=== PATIENT | female | born 2005 | race Caucasian/White ===

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

== ENCOUNTER 2025-02-21 18:12 | Emergency (ER) | payer OTHER, SELFPAY ==
--- NOTE | ~2025-02-21 | CT_ITS ---
CLINICAL INDICATION: Right-sided abdominal pain COMPARISON: None. TECHNIQUE: Multiple contiguous axial images of the abdomen and pelvis were performed without the admi nistration of intravenous contrast The dose-length product (DLP) was 327.07 mGy-cm. Automated exposure control and iterative reconstruction technique were employed. FINDINGS/OBSERVATIONS: Visualized lower thorax: The bilateral lung bases are clear. The heart is of normal size, without pericardial effusion. Liver: The liver demonstrates homogeneous attenuation and is not enlarged. Gallbladder and biliary system: The gallbladder is decompressed, and otherwise unremarkable. Pancreas: Limited evaluation of the pancreas secondary to the lack of intravenous contrast. Spleen: The spleen demonstrates homogeneous attenuation and is not enlarged. Kidneys: The bilateral kidneys are unremarkable, without hydronephrosis or renal calculi. Adrenal glands: Unremarkable. Gastrointestinal tract: Fecal stasis within the colon. Appendix: The air-filled appendix is of normal caliber (axial series, images 123 through 133) Vasculature: Unremarkable. Lymph nodes: Limited evaluation without intravenous contrast or Pelvic structures: The bladder is decompressed, and otherwise unremarkable. The uterus is anteverted and anteflexed, and contains an IUD. Body wall and musculoskeletal: Small fat-containing umbilical hernia. No significant degenerative disease within the lower thoracic or lumbosacral spine. IMPRESSION: No acute pathology within the abdomen or pelvis, as detailed above Reviewed, dictated and finalized at location A.
--- OUTSIDE RECORDS SUMMARY | 2025-02-21 18:15 | XMS_ITS | Referral Summary ---
Author Organization [address] Address [address] [place] [id number] Care Team Providers Care Digital Producer Name Role Phone Toño Perdue MD Primary Care Provider [phone] Encounters Date Type Department Care Team Description 02/21/2025 4:30 PM CDT Office Visit [facility] at [address] [id number] Batool Xie NP Acute cystitis with hematuria (Primary Dx); Right lower quadrant abdominal pain; Right lower quadrant abdominal tenderness, rebound tenderness presence not specified from Last 3 Months Allergies No known active allergies Medications cloNIDine (CATAPRES) 0.1 mg tablet Take 1 tablet (0.1 mg total) by mouth nightly 4 Active fludrocortisone 0.1 mg tablet TAKE 1 TABLET BY MOUTH EVERY DAY FOR 30 DAYS 4 Active FLUoxetine 10 mg tablet/capsule TAKE 1 CAPSULE BY MOUTH ONCE DAILY TAKE FOR A TOTAL OF 30 MG DAILY 0 Active ondansetron (ZOFRAN) 4 mg tablet Take 1 tablet (4 mg total) by mouth every 4 (four) hours as needed 4 Active benzonatate (TESSALON) 100 mg capsuleIndicatio ns:Cough Take 1 capsule (100 mg total) by mouth 3 (three) times a day as needed for cough 42 capsule 4 Active Additional Information Patient not taking.Reported on 02/21/2025 methylphenidate ER (METADATE ER) 20 mg CR tablet Take 1 tablet (20 mg total) by mouth every morning 4 Active nitrofurantoin monohydrate (MACROBID) 100 mg capsule Take 1 capsule (100 mg total) by mouth 2 (two) times a day for 5 days Take with food 10 capsule 02/27/20 25 Active Active Problems No known active problems Social History Tobacco Use Types Packs/Day Years Used Date Smoking Tobacco: Never Assessed Comments Unknown Sex and Gender Information Value Date Recorded Sex Assigned at Not on file Legal Sex Female 11:11 AM CDT Gender Identity Not on file Sexual Orientation Not on file Last Filed Vital Signs Vital Sign Reading Time Taken Comments Blood Pressure 106/67 02/21/2025 4:41 PM CDT Pulse 85 02/21/2025 4:41 PM CDT Temperature 37 C (98.6 F) 02/21/2025 4:41 PM CDT Respiratory Rate 21 02/21/2025 4:41 PM CDT Oxygen Saturation 100% 02/21/2025 4:41 PM CDT Inhaled Oxygen Concentration - - Weight 69.4 kg (153 lb 1.6 oz) 02/21/2025 4:41 P M CDT Height 167.6 cm (5' 5.98 ) 10/11/2024 2:19 PM CS T Body Mass Index 24.72 10/11/2024 2:19 PM 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 Plan of Treatment Not on file Procedures Procedure Name Priority Date/Time Associated Diagnosis Comments POCT HCG, URINE Routine 02/21/2025 4:57 PM CDT Acute cystitis with hematuria POCT URINALYSIS DIPSTICK Routine 02/21/2025 4:47 PM CDT Acute cystitis with hematuria from Last 3 Months Results * POCT hCG, urine (02/21/2025 4:57 PM CDT) HCG, ur, POC Negative Negative Lot Number [id number] QC Backgroud Clear Acceptable QC Control Line Acceptable Urine 02/21/2025 4:57 PM CDT Batool Xie NP POINT OF CARE TEST ORDERABLES F inal Result * (ABNORMAL) POCT urinalysis dipstick (02/21/2025 4:47 PM CDT) Color, Urine, POC Yellow Clarity, ur, POC Cloudy(A) Clear Glucose, ur, POC Negative Negative MG/DL Bilirubin, ur, POC Negative Negative, Small, Moderate, Large Ketones, ur, POC Negative Negative Specific [place], POC 1.020 1.003 - 1.030 Blood, ur, POC Large(A) Negative pH, ur, POC 7.0 5.0 - 8.0 Protein, ur, POC 300.(A) Negative Urobilinogen, urine, POC 0.2 0.2 - 1.0 mg/dL Nitrite, ur, POC Positive(A) Negative Leukocytes, ur, POC Small(A) Negative Lot Number [id number] Urine 02/21/2025 4:47 PM CDT Batool Xie NP POINT OF CARE TEST ORDERABLES F inal Result from Last 3 Months Insurance Care Teams Digital Producer Relationship Specialty Start Date End Date Toño Perdue MD [address] [place] [address] PCP - General Internal Medicine 10/11/24
--- OUTSIDE RECORDS SUMMARY | 2025-02-21 18:15 | XMS_ITS | Data Portability ---
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 CARS questionnaires for screening. Consideration to start her on Strattera if she meets criteria. I told her that I would not do any stimulant medicines, and I am hesitant to use clonidine or guanfacine in the setting of POTS. ils lsines Not available 04/19/2024 14:20:16 05/18/2024 05/18/2024 ADHD: Clonidine 0.1 mg p.o. at night. Call me in a couple weeks and at that time we will repeat the CARS questionnaires for her. She is also asking for a form to be filled out for an emotional support animal and has that available on her phone. [email or web address] Not available 05/18/2024 12:49:14 Plan of Treatment Reminders Order Date Submit Date Provider Last Modified By Organization Details Last Modified Time Details Appointments None recorded. Lab None recorded. Referral None recorded. Procedures None recorded. Surgeries None recorded. Imaging None recorded. Medication Orders clonidine HCl 0.1 mg tablet 2023 024 [id number], [address] [place], [address], 09:41:26 Patient TargetsNo targets recorded. Patient InstructionsNo instructions recorded. Reason for Referral None Reported. Results Created Date Observation Date Name Description Value Unit Range Abnormal Flag Note LastModifiedBy Organization Detail LastModifiedTime 03/20/20 24 03/14/2024 elect musa wugr am, routi ne ECG, 12 leads min No observ ation record ed. INTERFACE Sc Only - [facility] [address] [address], [place], [address], 03/20/2024 23:14:34 10/24/20 24 US, head + neck, soft tissu e [facility] [address] [place]. [address] ------ ---NAM E----- ---- NUMBER SEX AGE ADMIT DISC. XRAY# F/C TYPE BRYAN ROMELIA [id number] F [id number] CBU O/P DATE OF : 2004 M/R# [id number] PH#: LOCATI ON: TRANSC RIBED: 13:09 US SOFT TISSUE NECK/H EAD SONOG7 6536 [address] SHALINI: [id number] {Trans portat ion: AMBULA TORY PHYSIC YONY: JAZLYN MEHTA ====== ====== ====== ====== ====== ====== ====== ====== ====== ====== ====== ====== ====== == R A D I O L O G Y R E P O R T ====== ====== ====== ====== ====== ====== ====== ====== ====== ====== ====== ====== ====== == US Thyroi d Histor y: Abnorm al thyroi d functi on test. Compar robe: No prior availa ble. Techni que: Longit udinal and transv erse images of thyroi d were obtain ed. Findin gs: The right thyroi d lobe measur es 2.1 x 1.6 x 5.2 cm. The left thyroi d lobe measur es 1.6 x 1.3 x 4.4 cm. The thyroi d isthmu s measur es 2 mm in anteri or-pos terior dimens ion. There is mild diffus e increa sed vascul arity suspic ious for thyroi ditis. No discre te thyroi d nodule . No cervic al lympha denopa thy. IMPRES NANCY: Mildly hyperv ascula r appear ance of the thyroi d gland suspic ious for thyroi ditis. No discre te thyroi d nodule . This report was dictat ed remote ly by a [facility] Radiol ogist in [place], [place]. Electr onical ly Signed By: ROSS STERLING MD , Date/T nakul: 13:09 [email or web address] [facility] Rad [address] [place], [address], 11/17/2024 15:12:30 10/24/20 24 US, head + neck, soft tissu e [facility] [address] [place]. [address] ------ ---NAM E----- ---- NUMBER SEX AGE ADMIT DISC. XRAY# F/C TYPE BRYAN ROMELIA [id number] F [id number] CBU O/P DATE OF : 2004 M/R# [id number] PH#: LOCATI ON: TRANSC RIBED: 13:09 US SOFT TISSUE NECK/H EAD SONOG7 6536 [address] SHALINI: [id number] {Trans portat ion: AMBULA TORY PHYSIC YONY: JAZLYN MEHTA ====== ====== ====== ====== ====== ====== ====== ====== ====== ====== ====== ====== ====== == R A D I O L O G Y R E P O R T ====== ====== ====== ====== ====== ====== ====== ====== ====== ====== ====== ====== ====== == US Thyroi d Histor y: Abnorm al thyroi d functi on test. Compar robe: No prior availa ble. Techni que: Longit udinal and transv erse images of thyroi d were obtain ed. Findin gs: The right thyroi d lobe measur es 2.1 x 1.6 x 5.2 cm. The left thyroi d lobe measur es 1.6 x 1.3 x 4.4 cm. The thyroi d isthmu s measur es 2 mm in anteri or-pos terior dimens ion. There is mild diffus e increa sed vascul arity suspic ious for thyroi ditis. No discre te thyroi d nodule . No cervic al lympha denopa thy. IMPRES NANCY: Mildly hyperv ascula r appear ance of the thyroi d gland suspic ious for thyroi ditis. No discre te thyroi d nodule . This report was dictat ed remote ly by a [facility] Radiol ogist in [place], [place]. Electr onical ly Signed By: ROSS STERLING MD , Date/T nakul: 13:09 [email or web address] Id Only - [facility] [address], [place], [address], 11/17/2024 15:12:30 Result Notes None recorded. Problems Name Problem SNOMED Code Status Onset Date Resolution Date Notes Provider Name and Address Organization Details Recorded Time Nausea 178084217 Active 2023 Meredith Peñaloza [facility] 4 09:54:14 Mixed anxiety and depressive disorder 672470903 Active 2023 Manisha Morley [facility] 4 08:33:46 Attention deficit hyperactivity disorder, combined type 53372304 Active 2023 Toño Cantu MD [address] [facility], [place], [address] , [facility] 4 10:55:15 Disturbance of attention 34494750 [facility] 06:10:45 Postural orthostatic tachycardia syndrome 335579070 Active 2023 [facility] 06:10:53 Problem Notes None recorded. Procedures Surgical History None recorded. Imaging Results Imaging Date Name Status LastModified by Lia hardwick Details LastModified Time 03/14/2024 electrocardi ogram, routine ECG, 12 leads min completed INTERFACE Sc Only - [facility] [address] [address], [place], [address], 03/20/2024 23:14:34 10/24/2024 US, head + neck, soft tissue completed [email or web address] [facility] Only - [facility] [address] [place], [address], 11/17/2024 15:12:30 10/24/2024 US, head + neck, soft tissue completed [email or web address] Sc Only - [facility] [address] [place], [address], 11/17/2024 15:12:30 Procedure Notes None recorded. Medical Equipment None Reported. Allergies Allergen ID Allergen Name Allergen Category Reaction Reaction Severity Criticality Documentation Date Start Date Code Code System Note Provider Name and Address Organization Details Recorded Time 435274 Product containin g penicilli n (product) medicatio n rash Not available Not available 11/29/20232012 22605 8001 SNOMED React ion: Rash; Comme nt: Ilya hardwick s: JACKS ON, LORI E 2012 11:48 AM RASH; ; Not Available Not Available Not Available 201905 Substance with sulfonami de structure and antibacte rial mechanism of action (substanc e) medicatio n rash Not available Not available 11/29/20232012 32288 8003 SNOMED React ion: Rash; Comme nt: Annot atfaraz s: YIFAN GARRETT 2012 9:16A M 3; ; Not Available Not Available Not Available Medications Name Sig Start Date Stop Date Status Note LastModified by Organization Details LastModified Time clonidine HCl 0.1 mg tablet TAKE 1 TABLET BY MOUTH EVERYDAY AT BEDTIME 2023 active Not Available Not Available Not Avai lable paroxetine 10 mg tablet TAKE 1/2 TABLET BY MOUTH AT BEDTIME 04/19 completed Not Available Not Available Not Available Zofran 4 mg tablet Take 1 tablet every 4 hours by oral route. 2023 active Not Available Not Available Not Avai lable clindamycin 1 % topical gel APPLY AND GENTLY MASSAGE INTO AFFECTED AREA(S) TWICE DAILY. 04/19 completed Not Available Not Available Not Available benzonatate 100 mg capsule TAKE 1 TO 2 CAPSULES BY MOUTH 3 TIMES A DAY NEEDED FOR COUGH FOR 5 DAYS 04/19 completed Not Available Not Available Not Available albuterol sulfate HFA 90 mcg/actuati on aerosol inhaler INHALE 1 OR 2 PUFFS EVERY 4 HOURS NEEDED FOR SHORTNESS OF BREATH/WH EEZING 05/18 completed Not Available Not Available Not Available fluticasone propionate 50 mcg/actuati on nasal spray,suspe nsion USE 2 SPRAYS IN EACH NOSTRIL EVERY DAY 04/19 completed Not Available Not Available Not Available fludrocorti sone 0.1 mg tablet Take 1 tablet every day by oral route for 30 days. 2023 active Not Available Not Available Not Avai lable amoxicillin 875 mg-potassiu m clavulanate 125 mg tablet TAKE 1 TABLET BY MOUTH TWICE A DAY FOR 7 DAYS 04/19 completed Not Available Not Available Not Available atomoxetine 18 mg capsule TAKE 1 CAPSULE BY MOUTH EVERY DAY 05/18 completed Not Available Not Available Not Available 11/20 (28) 1 mg-20 mcg (21)/75 mg (7) tablet TAKE 1 TABLET BY MOUTH EVERY DAY 04/19 completed Not Available Not Available Not Available Thermotabs 287 mg-180 mg-15 mg tablet TAKE 1 TABLET BY MOUTH TWICE A DAY active Not Available Not Available No t Available Vitals Date Recorded Body weight Heart rate Respiratory rate Oxygen saturation Oxygen saturation in Arterial blood by Pulse oximetry Systolic blood pressure Diastolic blood pressure Provider Name and Address Organization Details Last Updated DateTime 4 77084.5 2 g 83 /min 18 /min 96 % 96 % 116 mm[Hg] 70 mm[Hg] Manisha Morley [facility] 4 10:31:38 Date Recorded Body weight Oxygen saturation Oxygen saturation in Arterial blood by Pulse oximetry Heart rate Respiratory rate Systolic blood pressure Diastolic blood pressure Provider Name and Address Organization Details Last Updated DateTime 4 60403.4 8 g 99 % 99 % 77 /min 16 /min 116 mm[Hg] 72 mm[Hg] Gosia Bauer [facility] 4 10:42:15 Social History None recorded. Functional Status None recorded. Mental Status None recorded. Family History Nothing Reported. Medical History No medical history recorded. Gynecological HistoryNo gynecological history recorded. Obstetrics History GPAL:G 0 P 0 0 0 0 Past Encounters Encounter ID Performer Location Encounter Start Date Encounter Closed Date Diagnosis/Indication Diagnosis SNOMED-CT Code Diagnosis ICD10 Code Diagnosis Note [id number] MD Brad Wilson [facility] ([place]) [address] [place] [address],[address] [place] [address] 04/19/2024 10:16:06 04/19/2024 11:12:55 Disturbance of attention 92571254 R41.840 Postural o rthostatic tachycardia syndrome 703974790 G90.A [id number] MD Brad Wilson [facility] ([place]) [address] [place] [address],[address] [place] [address] 05/18/2024 10:23:43 05/18/2024 11:42:30 Attention deficit hyperactivity disorder, combined type 01578845 F90.2 Health Concerns Section Related Observation LastModified by Organization Detai ls LastModified Time None Recorded Concern Status LastModified by Organization Details LastModified Time None Recorded Advance Directives Directive None Recorded Payers Encounter Date Sequence Insurance Name Policy Number Policy Corey Covered Member ID Corey Member ID Guarantor Name 04/19/2024 1 [employer] ([facility]) Romelia Hall [id number] Romelia Hall 05/18/2024 1 [facility] [employer] ([facility]) Romelia Hall [id number] Romelia Hall Notes Date Note Type Note Provider Name and Address Organization Details Recorded Time 04/19/2024 text/html Romelia is an 18-year-old white female who comes in today for a visit. She has a history for POTS syndrome. She is doing much better on sodium chloride tablets. She has not required any knee-high stockings at this point but I will discuss that with her as well. She has a history for some anxiety and depressive symptoms, but she is doing much better, and she is following up with therapy. I think cognitive behavioral therapy rather than medications is the best way to go. She has seen a psychologist who recommended trying Qelbree, although they are hesitant to do this. They are very well informed and they have researched the medication. They really do not want to go on this particular medicine. I told them at this point that we could screen her for ADHD and see if she does have this. She said she has trouble focusing. She is a quite intelligent student and she is a good student. 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 04/20/2024 09:17:49 05/18/2024 text/html Romelia is an 18-year-old white female who comes in today for a visit. She is doing okay. She says the atomoxetine is just not working. We had started her on a low dose of Strattera at 18 mg but she does not feel it is helping as she is having a dry mouth and some nausea. She has been trying to use Biotene to help with the dry mouth. She does not feel she is depressed, has no thoughts of self-harm, does not feel anxious. She is looking forward to starting college and she wants to go into molecular cellular biology and lab research. Toño Cantu MD [address] [place] [address], [address], [facility] 05/19/2024 13:49:04 OBGyn Episode No OBEpisode recorded.
--- OUTSIDE RECORDS SUMMARY | 2025-02-21 18:15 | XMS_ITS | Clinical Summary ---
Author Organization [address] Address [address] [place] [address] Care Team Providers Care Long Lines Operator Name Role Phone Toño Perdue MD Primary Care Provider [phone] Allergies No known active allergies Medications cloNIDine [...] 5 days Take with food 10 capsule 5 02/27/20 25 Active Active Problems No known active problems Encounters Date Type Department Care Team Description 02/21/2025 4:30 PM CDT Office Visit [facility] Care at [address] [address] Batool Xie NP Acute cystitis with hematuria (Primary Dx); Right lower quadrant abdominal pain; Right lower quadrant abdominal tenderness, rebound tenderness presence not specified from Last 3 Months Social History Tobacco Use Types Packs/Day Years Used Date Smoking Tobacco: Never Assessed Comments Unknown Sex and Gender Information Value Date Recorded Sex Assigned at Not on file Legal Sex Female 11:11 AM CDT Gender Identity Not on file Sexual Orientation Not on file Obstetrics History Growth Chart Information Age Height Weight Apjnlm-cwo-cryx th Percentile BMI Percentile Head Circum Head Circum Percentile Date 19 years 69.4 kg (153 lb 1.6 oz) 2024 19 years 167.6 cm (5' 5.98 ) 74.7 kg (164 lb 9.6 oz) 86.21%* 2023 19 years 167.6 cm (5' 6 ) 77.1 kg (170 lb) 88.97%* 2023 * [facility] (Girls, 2-20 Years) Last Filed Vital Signs Vital Sign Reading [...] Body Mass Index 24.72 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/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 Plan of Treatment Health Maintenance Due Date Last Done Comments Depression Screening 2005 Hepatitis C Screening 2005 Varicella Vaccines (1 of 2 - 13+ 2-dose series) 2018 HPV Vaccines (1 - 3-dose series) 2020 Meningococcal B Vaccine (1 o f 2 - Standard) 2021 Hepatitis B Screening 2023 Regular Well Visit/Exam 18-64 2023 Covid-19 Vaccine (3 - 2023-2 5 season) 2024 12/27/2021, 11/07/2021 Influenza Vaccine (Season Ended) 2025 DTaP/Tdap/Td Vaccine (2 - Td or Tdap) 07/03/2026 07/03/2016 Meningococcal Vaccine Completed 09/29/2022 , 08/11/2016 Pneumococcal vaccine <65 Aged Out No longer eligible based on patient's age to complete this topic Procedures Procedure Name Priority Date/Time Associated Diagnosis [...] Large Ketones, ur, POC Negative Negative Specific [place], POC 1.020 1.003 - 1.030 Blood, ur, POC Large(A) Negative pH, ur, POC 7.0 5.0 - 8.0 Protein, ur, POC 300.(A) Negative Urobilinogen, urine, POC 0.2 0.2 - 1.0 mg/dL Nitrite, ur, POC Positive(A) Negative Leukocytes, ur, POC Small(A) Negative Lot Number [id number] Urine 02/21/2025 4:47 PM CDT Batool Xie NP POINT OF CARE TEST ORDERABLES F inal Result from Last 3 Months Insurance [employer] Care Teams Long Lines Operator Relationship Specialty Start Date End Date Toño Perdue MD [address] [place] [address] PCP - General Internal Medicine 10/11/24
--- OUTSIDE RECORDS SUMMARY | 2025-02-21 18:15 | XMS_ITS | Encounter Summary ---
Author Organization [facility] Healthcare Address [address] [place] [address] Care Team Providers Care Creative Services Writer Name Role Phone Toño Perdue MD Primary Care Provider [phone] Reason for Visit * Reason Comments Urinary Symptom Symptoms for a week. Frequency, urgency, and burning. Encounter Details Date Type Department Care Team (Late st Contact Info) Description 02/21/2025 4:30 PM CDT Office Visit [facility] Convenient Care at [address] [address] Batool Xie NP [address] [place] [address] [address] [place] [address] Acute cystitis with hematuria (Primary Dx); Right lower quadrant abdominal pain; Right lower quadrant abdominal tenderness, rebound tenderness presence not specified Social History Tobacco Use Types Packs/Day Years Used Date Smoking Tobacco: Never Assessed Comments Unknown Sex and Gender Information Value Date Recorded Sex Assigned at Not on file Legal Sex Female 11:11 AM CDT Gender Identity Not on file Sexual Orientation Not on file documented as of this encounter Last Filed Vital Signs Vital Sign Reading [...] oz) 02/21/2025 4:41 P M CDT Height - - Body Mass Index 24.72 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 documented in this encounter Ordered Prescriptions Prescription Sig Dispense Quantity Refills Last Filled Start Date End Date nitrofurantoin monohydrate (MACROBID) 100 mg capsule Take 1 capsule (100 mg total) by mouth 2 (two) times a day for 5 days Take with food 10 capsule 02/21/2025 documented in this encounter Plan of Treatment Scheduled Orders Name Type Priority Associated Diagnoses Orde r Schedule Urine culture Urine, clean voided Microbiology Routine Acute cystitis with hematuria Expected: 02/21/2025, Expires: 02/21/2026 documented as of this encounter Procedures Procedure Name Priority Date/Time Associated Diagnosis Comments POCT HCG, URINE Routine 02/21/2025 4:57 PM CDT Acute cystitis with hematuria POCT URINALYSIS DIPSTICK Routine 02/21/2025 4:47 PM CDT Acute cystitis with hematuria documented in this encounter Results * POCT hCG, urine (02/21/2025 4:57 [...] Large Ketones, ur, POC Negative Negative Specific [employer] [place], POC 1.020 1.003 - 1.030 Blood, ur, POC Large(A) Negative pH, ur, POC 7.0 5.0 - 8.0 Protein, ur, POC 300.(A) Negative Urobilinogen, urine, POC 0.2 0.2 - 1.0 mg/dL Nitrite, ur, POC Positive(A) Negative Leukocytes, ur, POC Small(A) Negative Lot Number [id number] Urine 02/21/2025 4:47 PM CDT us Batool Xie NP POINT OF CARE TEST ORDERABLES F inal Result documented in this encounter Visit Diagnoses Diagnosis Acute cystitis with hematuria- Primary Right lower quadrant abdominal pain Right lower quadrant abdominal tenderness, rebound tenderness presence not specified documented in this encounter Care Teams Creative Services Writer Relationship Specialty Start Date End Date Toño Perdue MD [address] [place] [address] PCP - General Internal Medicine 10/11/24 documented as of this encounter
--- OUTSIDE RECORDS SUMMARY | 2025-02-21 18:15 | XMS_ITS | Clinical Summary ---
Author Organization [facility] Address [facility] [place] [address] Care Team Providers Care Launching Pad Mechanic Name Role Phone Judith Eisenberg MD Primary Care Provider [phone] Allergies No known active allergies Medications FLUoxetine 10 MG capsule TAKE 1 CAPSULE BY MOUTH ONCE DAILY TAKE FOR A TOTAL OF 30 MG DAILY 07/19/2020 Active Active Problems No known active problems Family History Medical History Relation Comments No Known Problems Father No Known Problems Mother Relation Status Comments Father Alive Mother Alive Social History Tobacco Use Types Packs/Day Years Used Date Smoking Tobacco: Former Smokeless Tobacco: Never Alcohol Use Standard Drinks/Week Comments Not Currently 0 (1 standard drink = 0.6 oz pur e alcohol) Comments No Sex and Gender Information Value Date Recorded Sex Assigned at Not on file 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 Gender Identity Not on file Sexual Orientation Not on file Last Filed Vital Signs Vital Sign Reading Time Taken Comments Blood Pressure 115/64 07/22/2020 12:03 PM CDT Pulse 89 07/22/2020 12:03 PM CDT Temperature 36.8 C (98.3 F) 07/22/2020 12:03 PM CDT Respiratory Rate 18 07/22/2020 12:03 PM CDT Oxygen Saturation 98% 07/22/2020 12:03 PM CDT Inhaled Oxygen Concentration - - Weight 60.1 kg (132 lb 8 oz) 07/22/2020 12:03 PM CDT Height 168.9 cm (5' 6.5 ) 07/22/2020 12:03 PM CD T Body Mass Index 21.07 07/22/2020 12:03 PM CDT Body Mass Index Percentile 62.85% 07/22/2020 12: 03 PM CDT Growth Chart: CDC (Girls, 2- 20 Years) Plan of Treatment Health Maintenance Due Date Last Done Comments Annual Physical 2008 HPV Vaccines (1 - 3-dose series) 2020 Meningococcal B Vaccine (1 o f 2 - Standard) 2021 Hepatitis C 2023 DTaP, Tdap and Td Vaccines ( 1 - Tdap) 2024 Hepatitis B Vaccines (1 of 3 - 19+ 3-dose series) 2024 COVID-19 Vaccine (1 - 2023-2 5 season) 2024 Meningococcal Vaccine Aged Out No savannah renetta eligible based on patient's age to complete this topic Pneumococcal Vaccine: Pediat rics (0 to 5 Years) and At-Risk Patients (6 to 49 Years) Aged Out No longer eligible b ased on patient's age to complete this topic RSV Immunizations Under 20 Months Aged Out No longer eligible based on patient's age to complete this topic Insurance Care Teams Launching Pad Mechanic Relationship Specialty Start Date End Date Judith Eisenberg MD [address] [place] [address] PCP - General PEDIATRICS 11/20/21
[2025-02-21 18:22] VITALS: BP 128/78; PULSE 87; RESP 16; TEMP 37.1; O2SAT 100
--- NOTE | 2025-02-21 18:30 | ED_ITS ---
HPI - Abdominal Pain General Chief Complaint: Abdominal Pain Stated Complaint: abd pain Time Seen by Provider: 02/21/25 18:17 History of Present Illness HPI narrative: 19-year-old female presents to emergency department for UTI symptoms and right- sided abdominal pain. Patient states she began having dysuria and urinary frequency 3 days ago. Last night she began having pain to the right side of her abdomen and flank. States the pain is a constant aching nature with intermittent sharp pains in the right side of her abdomen that are worse with movement. Went to urgent care today and was advised to come to the ED. she reports associated nausea but no emesis. Denies diarrhea, fever, hematuria, history of kidney stones. Denies vaginal discharge or concern for STDs. No prior abdominal surgeries. Related Data Allergies Allergy/AdvReac Type Severity Reaction Status Date / Time No Known Allergies Allergy Verified 02/21/25 18:25 Review of Systems 2 Review of Systems: All systems reviewed & are unremarkable except as noted in HPI and below PMFSH Past Medical History Medical History POTS (postural orthostatic tachycardia syndrome) Social History Social History Smoking status: Never smoker Substance use type: does not use Exam 2 Narrative: GENERAL: Well-appearing, well-nourished, and in no acute distress. HEAD: Normocephalic, atraumatic. EYES: EOMI. ENT: Nares clear, no rhinorrhea or epistaxis. Mucous membranes moist. NECK: Supple. CHEST: Clear to auscultation. No respiratory distress. HEART: Regular rate and rhythm. No murmur heard. Normal peripheral pulses. ABDOMEN: Normoactive bowel sounds. Abdomen soft with mild tenderness to the suprapubic region, right lower quadrant and right upper quadrant. No rebound or rigidity. Mild right CVA tenderness EXTREMITIES: Normal range of motion. No edema. SKIN: Warm, dry, no rash. NEURO: No focal deficits. Alert and oriented x3 Course Vital Signs Vital signs: Vital Signs Temperature 98.7 F 02/21/25 18:22 Pulse Rate 87 02/21/25 18:22 Respiratory Rate 16 02/21/25 18:22 Blood Pressure 128/78 02/21/25 18:22 Pulse Oximetry 100 02/21/25 18:22 Temperature 98.7 F 02/21/25 18:22 Pulse Rate 84 02/21/25 20:45 Respiratory Rate 16 02/21/25 20:45 Blood Pressure 116/66 02/21/25 20:45 Pulse Oximetry 99 02/21/25 20:45 MDM - Abdominal Pain MDM Narrative Medical decision making narrative: 19-year-old female presents to the emergency department for dysuria and urinary frequency for 3 days, right-sided abdominal and flank pain that started yesterday. Triage vitals are stable. She is afebrile and nontoxic appearing. Exam is significant for the above. CBC with leukocytosis of 12.2, no bandemia. Chemistries are unremarkable with a stable kidney function. UA concerning for UTI with greater than 100 red blood cells, positive nitrites, 3+ leuk esterase and 4+ bacteria. Patient also does have hematuria with 11-20 RBCs. Urine cultures pending. is negative. CT abdomen pelvis shows no acute pathology abdomen or pelvis, notably normal appendix and no obstructive uropathy. Patient updated on results. She politely declined antiemetics or pain medications. Her presentation is consistent with pyelonephritis. She was given a dose of IV Rocephin in the ED. She is tolerating p.o. intake and resting comfortably in exam bed. Feel she is safe to be discharged home with outpatient follow-up. Pt is in agreement with this. She was prescribed Macrobid by urgent care earlier today and was advised to not fill this. Cipro sent to pharmacy. Also given azo, ibuprofen and Reglan for symptomatic control. Advised close follow-up with PCP discussed strict ED return precautions. She is agreeable with the plan verbalized understanding. Discharged in stable condition. Lab Data 02/21/25 18:37 02/21/25 18:37 Labs: Lab Results 02/21/25 02/21/25 02/21/25 Range/Units 18:37 18:40 20:44 WBC 12.2 H (4.5-10.0) K/mm3 RBC 4.74 (4.2-5.4) M/mm3 Hgb 12.4 (12.0-15.0) g/dL Hct 40.0 (37.0-47.0) % MCV 84.4 (80-100) fl MCH 26.2 (26-34) pg MCHC 31.0 L (32-36) g/dl RDW 14.6 H (11.5-14.5) % Plt Count 274 (150-375) k/mm3 MPV 9.8 (7.4-10.4) fl Immature Gran % (Auto) 0.3 (0-0.5) % Neut % (Auto) 70.4 (45.5-73.1) % Lymph % (Auto) 21.1 (18.3-44.2) % [place] % (Auto) 7.0 (2.6-8.5) % Eos % (Auto) 0.8 (0-4.4) % Baso % (Auto) 0.4 (0.2-1.2) % Lymph # (Auto) 2.58 (0.9-3.2) K/mm3 [place] # (Auto) 0.9 H (0.1-0.6) K/mm3 Eos # (Auto) 0.1 (0-0.3) K/mm3 Baso # (Auto) 0.1 (0.0-0.1) K/mm3 Abs Immat Gran (auto) 0.04 H (0.00-0.031) K/mm3 Absolute Neuts (auto) 8.6 H (1.3-6.7) K/mm3 Absolute Nucleated RBC 0.000 (0.0-0.012) K/mm3 Nucleated RBC % 0.0 (0.0-0.2) % Sodium 140 (134-143) mmol/L Potassium 4.1 (3.4-5.0) mmol/L Chloride 103 (98-107) mmol/L Carbon Dioxide 25 (22-30) mmol/L Anion Gap 12 (4-12) mmol/L BUN 11 (8-21) mg/dL Creatinine 0.70 (0.7-1.0) mg/dL Estim Creat Clear Calc 104 ml/min Estimated GFR > 60 (59 - ) Glucose 88 (65-110) mg/dL Lactic Acid 0.6 L (0.7-2.0) mmol/L Calcium 9.8 (8.9-10.7) mg/dL Total Bilirubin 0.7 (0.2-1.3) mg/dL AST 28 (14-36) U/L ALT 19 (6-35) U/L Alkaline Phosphatase 81 (45-116) U/L Total Protein 8.0 (6.3-8.6) g/dL Albumin 4.9 (3.7-5.6) g/dL Lipase 81 (23-300) U/L Urine Color Yellow (Yellow) Urine Appearance Cloudy H (Clear) Urine pH 7.0 (5.0-9.0) Ur Specific [place] 1.015 (1.001-1.035) Urine Protein 1+ H (Negative) mg/dL Urine Glucose (UA) Negative (Negative) mg/dL Urine Ketones Negative (Negative) mg/dL Ur Blood (Man) 2+ H (Negative) Urine Nitrate Positive H (Negative) Urine Bilirubin Negative (Negative) Urine Urobilinogen 0.2 (<2.0) mg/dL Leukocyte Esterase Rfl 3+ H (Negative) ASHLEY/UL Urine RBC 11-20 H (0-2) /hpf Urine WBC >100 H (0-3) /hpf Ur Squamous Epith Cells None seen (Few) /hpf Urine Bacteria 4+ H /hpf Urine Casts 0-2 POC Urine HCG, Qual Negative (Negative) Imaging Data Radiologist's impression: ITS Impressions Abdomen/Pelvis CT 02/21/25 19:53 IMPRESSION: No acute pathology within the abdomen or pelvis, as detailed above Discharge Plan Discharge Clinical Impression: Pyelonephritis Patient Disposition: Home Condition: Stable Instructions: Antibiotic Form, Kidney Infection (ED) Additional Instructions: Your evaluated in the emergency department for abdominal plain and UTI symptoms. Her found have urinary tract infection which is likely affecting her kidneys called pyelonephritis. Please take ciprofloxacin which is an antibiotic as directed. Do not take the nitrofurantoin/Macrobid that was prescribed by urgent care. I have sent AZO for burning with urination and bladder spasms as well as metoclopramide as needed for nausea and vomiting. Take ibuprofen as needed for pain. Please follow-up closely with your primary care provider. Return to the emergency department if you develop a fever of 100.4 or greater, changing worsening pain, your unable to tolerate food or fluids, or other concerning symptoms. Patient Language: German Prescriptions: New ciprofloxacin HCl 500 mg tablet 500 mg PO Q12H Qty: 14 0RF phenazopyridine 200 mg tablet 200 mg PO TID Qty: 6 0RF metoclopramide HCl 10 mg tablet 10 mg PO Q6H PRN (Reason: nausea and vomiting) Qty: 7 0RF ibuprofen 800 mg tablet 800 mg PO TID PRN (Reason: pain) Qty: 20 0RF Follow-up/Referrals: PHYSICIAN NOT ON STAFF,NONSTAFF [Primary Care Provider] -
--- NOTE | 2025-02-21 18:40 | ECG_ITS ---
Test Date: 2025-02-21 18:48:29 Measurements Intervals [place] Rate: 84 P: 70 VT: 142 QRS: 87 QRSD: 86 T: 56 QT: 355 QTc: 421 Interpretive Statements SINUS RHYTHM MINIMAL Q WAVES- INFERIOR LEADS BASELINE ARTIFACT- I, II, III BORDERLINE ECG No previous ECG available for comparison Electronically Signed On 02-21-2025 20:28:09 CDT by Cisco Cortés D.O.
[2025-02-21 18:42] LABS: BEDSIDEPREGUCG Negative (Negative)
[2025-02-21 18:43] LABS: Basophils Absolute Auto 0.1 K/mm3 (0.0-0.1); Basophils Percent Auto 0.4 % (0.2-1.2); Eosinophils Absolute Auto 0.1 K/mm3 (0-0.3); Eosinophils Percent Auto 0.8 % (0-4.4); Hemoglobin 12.4 g/dL (12.0-15.0); Immature Granulocyte Absolute 0.04 K/mm3 (0.00-0.031); Immature Granulocyte Percent A 0.3 % (0-0.5); Lymphocytes Absolute Auto 2.58 K/mm3 (0.9-3.2); Lymphocytes Percent Auto 21.1 % (18.3-44.2); Mean Corpuscular Hemoglobin 26.2 pg (26-34); Mean Corpuscular Volume 84.4 fl (80-100); Mean Platelet Volume 9.8 fl (7.4-10.4); Monocytes Absolute Auto 0.9 K/mm3 (0.1-0.6); Neutrophils Absolute Auto 8.6 K/mm3 (1.3-6.7); Neutrophils Percent Auto 70.4 % (45.5-73.1); Platelet Count Result 274 k/mm3 (150-375); Red Blood Count 4.74 M/mm3 (4.2-5.4); Red Cell Distribution Width 14.6 % (11.5-14.5); White Blood Count 12.2 K/mm3 (4.5-10.0)
[2025-02-21 18:53] LABS: Alanine Aminotransferase 19 U/L (6-35); Albumin Level 4.9 g/dL (3.7-5.6); Alkaline Phosphatase 81 U/L (45-116); Anion Gap 12 mmol/L (4-12); Aspartate Amino Transferase 28 U/L (14-36); Bilirubin,Total 0.7 mg/dL (0.2-1.3); Blood Urea Nitrogen 11 mg/dL (8-21); Calcium 9.8 mg/dL (8.9-10.7); Carbon Dioxide 25 mmol/L (22-30); Chloride 103 mmol/L (98-107); Estimated CRCL calculation 104 ml/min; Estimated Glomerular Filt Rate > 60; Glucose 88 mg/dL (65-110); Lipase 81 U/L (23-300); Potassium 4.1 mmol/L (3.4-5.0); Sodium 140 mmol/L (134-143)
--- OUTSIDE RECORDS SUMMARY | 2025-02-21 19:03 | XMS_ITS | Clinical Summary ---
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
--- OUTSIDE RECORDS SUMMARY | 2025-02-21 19:03 | XMS_ITS | Encounter Summary ---
Author Organization [facility] Healthcare Address [address] [place] [address] Care Team Providers Care Knife Edger Name Role Phone Toño Perdue MD Primary Care Provider [phone] Reason for Visit * Reason Comments Urinary Symptom Symptoms for a week. Frequency, urgency, and burning. 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 documented in this encounter Ordered Prescriptions Prescription [...] Large Ketones, ur, POC Negative Negative Specific [place], POC 1.020 1.003 - 1.030 Blood, ur, POC Large(A) Negative pH, ur, POC 7.0 5.0 - 8.0 Protein, ur, POC 300.(A) Negative Urobilinogen, urine, POC 0.2 0.2 - 1.0 mg/dL Nitrite, ur, POC Positive(A) Negative Leukocytes, ur, POC Small(A) Negative Lot Number [id number] Urine 02/21/2025 4:47 PM CDT us Batool Xie NP POINT OF CARE TEST ORDERABLES F inal Result documented in this encounter Visit Diagnoses Diagnosis Acute cystitis with hematuria- Primary Right lower quadrant abdominal pain Right lower quadrant abdominal tenderness, rebound tenderness presence not specified documented in this encounter Care Teams Knife Edger Relationship Specialty Start Date End Date Toño Perdue MD [address] [place] [address] PCP - General Internal Medicine 10/11/24 documented as of this encounter
--- OUTSIDE RECORDS SUMMARY | 2025-02-21 19:03 | XMS_ITS | Referral Summary ---
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 Plan of Treatment Not on file Procedures [...] Large Ketones, ur, POC Negative Negative Specific [place], POC 1.020 1.003 - 1.030 Blood, ur, POC Large(A) Negative pH, ur, POC 7.0 5.0 - 8.0 Protein, ur, POC 300.(A) Negative Urobilinogen, urine, POC 0.2 0.2 - 1.0 mg/dL Nitrite, ur, POC Positive(A) Negative Leukocytes, ur, POC Small(A) Negative Lot Number [id number] Urine 02/21/2025 4:47 PM CDT Batool Xie NP POINT OF CARE TEST ORDERABLES F inal Result from Last 3 Months Insurance Care Teams Gas Jockey Relationship Specialty Start Date End Date Toño Perdue MD [address] [place] [address] PCP - General Internal Medicine 10/11/24
--- OUTSIDE RECORDS SUMMARY | 2025-02-21 19:03 | XMS_ITS | Clinical Summary ---
Author Organization [address] Address [address] [place] [id number] Care Team Providers Care Cruise Director Name Role Phone Toño Perdue MD Primary Care Provider [phone] Allergies No known active allergies Medications cloNIDine [...] Description 02/21/2025 4:30 PM CDT Office Visit [facility] Care at [address] [address] Batool Xie NP Acute cystitis [...] History Growth Chart Information Age Height Weight [id number] th Percentile BMI Percentile Head Circum Head Circum Percentile Date 19 years 69.4 kg (153 lb 1.6 oz) 2024 19 years 167.6 cm (5' 5.98 ) 74.7 kg (164 lb 9.6 oz) 86.21%* 2023 19 years 167.6 cm (5' 6 ) 77.1 kg (170 lb) 88.97%* 2023 * [facility] (Girls, 2-20 Years) Last Filed Vital Signs [...] Body Mass Index 24.72 10/11/2024 2:19 PM 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 Plan of Treatment Health Maintenance Due Date [...] Large Ketones, ur, POC Negative Negative Specific [place], POC 1.020 1.003 - 1.030 Blood, ur, POC Large(A) Negative pH, ur, POC 7.0 5.0 - 8.0 Protein, ur, POC 300.(A) Negative Urobilinogen, urine, POC 0.2 0.2 - 1.0 mg/dL Nitrite, ur, POC Positive(A) Negative Leukocytes, ur, POC Small(A) Negative Lot Number [id number] Urine 02/21/2025 4:47 PM CDT Batool Xie NP POINT OF CARE TEST ORDERABLES F inal Result from Last 3 Months Insurance [employer] Care Teams Cruise Director Relationship Specialty Start Date End Date Toño Perdue MD [address] [place] [address] PCP - General Internal Medicine 10/11/24
--- NOTE | 2025-02-21 19:16 | PC.NURSE ---
Assumed care of patient after receiving bedside report from JESSICA Mcneal. @ [phone]
[2025-02-21 19:24] LABS: Add Urine Microscopic? YES; Appearance Urine Cloudy (Clear); Bacteria Urine 4+ /hpf; Bilirubin Urine Negative (Negative); Blood Urine 2+ (Negative); Color Urine Yellow (Yellow); Glucose Urine UA Negative (Negative); Ketones Urine Negative (Negative); Leukocyte Esterase Ur 3+ LEU/UL (Negative); Nitrate Urine Positive (Negative); Non Pathogenic Casts 0-2; Protein Urine 1+ mg/dL (Negative); Specific Grav Ur 1.015 (1.001-1.035); Squamous Epithelial Cell Urine None Seen /hpf (Few); Urobilinogen Urine 0.2 mg/dL (<2.0); WBC Urine >100 /hpf (0-3)
[2025-02-21 20:45] VITALS: BP 116/66; PULSE 84; RESP 16; O2SAT 99
[2025-02-21 21:01] LABS: Lactic Acid Reflex 0.6 mmol/L (0.7-2.0)
[2025-02-21 21:44] VITALS: BP 122/82; PULSE 85; RESP 16; O2SAT 100
== END 2025-02-21 21:46 | disposition home or self-care (01) ==
PROVIDERS: Emergency Provider Physician Assistant
DX: N12 Tubulo-interstitial nephritis, not specified as acute or chronic (principal); G90.A Postural orthostatic tachycardia syndrome [POTS]
CPT/HCPCS: 36415; 74176; 80053; 81001; 81025; 83605; 83690; 85025; 87086; 87186; 93005; 96365; 99284; J0696